=== PATIENT | male | born 1955 | race Caucasian/White ===

== ENCOUNTER 2023-01-19 10:08 | Emergency (ER) | payer SELFPAY ==
[~2023-01-19] VITALS: Ht 170.2 cm; Wt 90.7 kg
[2023-01-19] MEDS ORDERED: IBUPROFEN 800 MG TABLET ONE (10:30)
[2023-01-19] MEDS ORDERED: IBUPROFEN 800 MG TABLET PO ONE (10:30)
[2023-01-19] MEDS ORDERED: CLIN300C3 PO (11:20)
[2023-01-19] MEDS ORDERED: IBUP-1957 PO ×2 (11:20→11:48)
[2023-01-19 11:37] VITALS: BP 122/60; TEMP 97.9; O2SAT 99
[2023-01-19] MEDS ORDERED: CLIN300C12 PO (11:48)
== END 2023-01-19 11:37 | disposition home or self-care (01) ==
LOC: ER 10:08
DX: R51.9 Headache, unspecified (principal); J32.0 Chronic maxillary sinusitis; Z79.1 Long term (current) use of non-steroidal anti-inflammatories (NSAID); Z79.2 Long term (current) use of antibiotics
CPT/HCPCS: 70450; 70486; A4663